=== PATIENT | female | born 1940 | race Caucasian/White ===

== ENCOUNTER → 2023-08-16 | Outpatient (CLI) | payer MEDICARE, BC ==
[2023-10-04 05:55] LABS: HEMATOCRIT 57.5 % (37.0-47.0); HEMOGLOBIN 18.5 g/dL (12.5-16.0)
== END ==
LOC: LAB 11:02
PROVIDERS: Nurse Practitioner
DX: D72.829 Elevated white blood cell count, unspecified (principal)

== ENCOUNTER → 2023-11-04 | Outpatient (CLI) | payer MEDICARE, BC ==
[~2023-11-04] VITALS: Ht 157.5 cm; Wt 45.0 kg
[~2023-11-04] MED LIST: ALDACTONE 25MG25 MG PO; CAPOTEN 25MG25 MG PO; COREG12.5 M1 PO; DIGITEK125 MCG PO; EXCEDRIN EXTRA1 EACH PO; FUROSEMIDE40 MG PO; HYDROXYURE500 MG/CAP; LEVOTHYROXINE100 MC2 PO; NS 500 ML IV SCH; SERTRALINE HYD100 MG PO
[2023-11-04 08:55] VITALS: BP 147/73
[2023-11-04 09:39] LABS: HEMATOCRIT 54.6 % (37.0-47.0)
[2023-11-04 10:19] VITALS: BP 135/75
== END ==
LOC: AMSURD 08:46
PROVIDERS: Internal Medicine
DX: D45 Polycythemia vera (principal)
CPT/HCPCS: J7040

== ENCOUNTER → 2023-11-18 | Outpatient (CLI) | payer MEDICARE, BC ==
[~2023-11-18] VITALS: Ht 157.5 cm; Wt 45.0 kg
[2023-11-18 09:04] VITALS: BP 140/84
[2023-11-18 09:26] LABS: HEMATOCRIT 49.6 % (37.0-47.0); HEMOGLOBIN 16.4 g/dL (12.5-16.0)
[2023-11-18 10:25] VITALS: BP 134/68
== END ==
LOC: LAB 08:48
PROVIDERS: Internal Medicine
DX: D45 Polycythemia vera (principal)
CPT/HCPCS: J7040

== ENCOUNTER 2023-12-02 08:52 | Outpatient (RCR) | payer MEDICARE, BC ==
[~2023-12-02] VITALS: Ht 157.5 cm; Wt 45.0 kg
[2023-12-02] MEDS ORDERED: NS 500 ML IV SCH (09:00)
[2023-12-02 09:06] VITALS: BP 153/76
[2023-12-02 11:04] VITALS: BP 341/67
--- NOTE | 2023-12-02 11:09 | NUR ---
PT LIGIA PHLEBOTOMY WELL. IVF INFUSED OVER 30 MINUTES. VSS. DENIES ANY DIZZINESS WHEN AMBULATING OUT OF FACILITY.
== END 2023-12-13 ==
LOC: AMSURD
DX: D45 Polycythemia vera (principal)
CPT/HCPCS: J7040

== ENCOUNTER → 2023-12-02 | Outpatient (CLI) | payer MEDICARE, BC ==
[~2023-12-02] MED LIST changes: -NS 500 ML IV SCH
[2023-12-02 09:34] LABS: HEMOGLOBIN 14.2 g/dL (12.5-16.0)
--- NOTE | 2023-12-02 09:54 | NUR ---
HCT 42. NOTIFIED DR PAREDES'S OFFICE. PER NURSE RAMOS, OKAY TO PROCEED WITH PHLEBOTOMY
== END ==
LOC: LAB 08:54
PROVIDERS: Internal Medicine
DX: D45 Polycythemia vera (principal)